=== PATIENT | male | born 1995 | race Two or more races ===

== ENCOUNTER 2017-12-18 23:24 | Emergency (ER) | payer MEDICAID ==
[~2017-12-18] VITALS: Ht 160 cm; Wt 54.5 kg
[~2017-12-18 23:24] MED LIST: ACET120E PO; DOCU-28 PO; NO HOME MEDS; POLY17PO10 PO; SENN8.6T19 PO; [UNRECOGNIZED DRUG - CODE] PO
[2017-12-19] MEDS ORDERED: IBUP-1984 PO (00:26)
[2017-12-19] MEDS: ibuprofen tablet 400 MG TABLET PO ONE ×2 (00:26→00:34)
[2017-12-19 00:39] VITALS: BP 111/75
== END 2017-12-19 00:42 | disposition home or self-care (01) ==
LOC: ER 23:25
DX: R07.89 Other chest pain (principal); R06.02 Shortness of breath; F12.10 Cannabis abuse, uncomplicated; Z87.891 Personal history of nicotine dependence
CPT/HCPCS: 71046; 93005; 99284

== ENCOUNTER 2018-07-22 19:17 | Emergency (ER) | payer MEDICAID ==
[~2018-07-22] VITALS: Ht 177.8 cm; Wt 55.0 kg
[2018-07-22 19:33] VITALS: BP 129/74
[2018-07-22] MEDS ORDERED: dexamethasone sod phosphate 10mg/ml inj PO STA (20:45)
[2018-07-22] MEDS ORDERED: ibuprofen 100 MG/5 ML oral susp PO ONE (20:45)
== END 2018-07-22 21:13 | disposition home or self-care (01) ==
LOC: ER 19:18
DX: G44.209 Tension-type headache, unspecified, not intractable (principal); G47.30 Sleep apnea, unspecified; F12.10 Cannabis abuse, uncomplicated; Z79.899 Other long term (current) drug therapy
CPT/HCPCS: 99283; J1100

== ENCOUNTER 2020-03-19 18:34 | Emergency (ER) | payer MEDICAID, OTHER ==
[~2020-03-19] VITALS: Ht 177.8 cm; Wt 61.4 kg
[2020-03-19 19:04] VITALS: BP 119/69
[2020-03-19] MEDS ORDERED: ketorolac tromethamine 15mg/ml inj. IM ONE (20:35)
== END 2020-03-19 20:52 | disposition home or self-care (01) ==
LOC: ER 18:34
DX: M79.671 Pain in right foot (principal); M25.551 Pain in right hip; G47.30 Sleep apnea, unspecified; F12.90 Cannabis use, unspecified, uncomplicated; Z72.89 Other problems related to lifestyle; Z79.899 Other long term (current) drug therapy
CPT/HCPCS: 73502; 96372; 99283; J1885

== ENCOUNTER 2020-12-13 12:06 | Emergency (ER) | payer MEDICAID, OTHER ==
[~2020-12-13] VITALS: Ht 177.8 cm; Wt 56.8 kg
[~2020-12-13 12:06] MED LIST changes: +IBUP100T80 PO; -[UNRECOGNIZED DRUG - CODE] PO
[2020-12-13 12:22] VITALS: BP 115/77
== END 2020-12-13 15:00 | disposition home or self-care (01) ==
LOC: ER 12:08
DX: J06.9 Acute upper respiratory infection, unspecified (principal); Z20.822 Contact with and (suspected) exposure to COVID-19; F12.90 Cannabis use, unspecified, uncomplicated; G47.30 Sleep apnea, unspecified; Z72.89 Other problems related to lifestyle; Z79.899 Other long term (current) drug therapy
CPT/HCPCS: 71045; 87635; 99284; C9803

== ENCOUNTER 2021-12-27 16:17 | Emergency (ER) | payer MEDICAID ==
[~2021-12-27] VITALS: Ht 177.8 cm; Wt 59.1 kg
[2021-12-27 17:36] VITALS: BP 181/157
[2021-12-27 18:15] LABS: BASOPHILS % (AUTO) 0.2 % (0-1); EOSINOPHILS % (AUTO) 0.1 % (0-6); HEMATOCRIT 40.3 % (42.0-52.0); HEMOGLOBIN 13.6 g/dl (14.0-17.9); LYMPHOCYTES # (AUTO) 0.4 X10'3 (1.1-4.8); LYMPHOCYTES % (AUTO) 5.3 % (21-51); MEAN CORPUSCULAR HEMOGLOBIN 29.7 PG (27.0-31.0); MEAN CORPUSCULAR HGB CONC 33.7 g/dL (33.0-36.5); MEAN CORPUSCULAR VOLUME 88.1 FL (78-98); MEAN PLATELET VOLUME 7.8 FL (7.4-10.4); MONOCYTES # (AUTO) 0.8 X10'3 (0-0.9); MONOCYTES % (AUTO) 12.2 % (2-12); NEUTROPHILS # (AUTO) 5.5 X10'3 (1.8-7.7); NEUTROPHILS % (AUTO) 82.2 % (42-75); PLATELET COUNT 252 X10'3 (140-440); RED BLOOD COUNT 4.57 X10'6 (4.70-6.10); RED CELL DISTRIBUTION WIDTH 12.9 % (11.5-14.5); WHITE BLOOD COUNT 6.7 X10'3 (4.5-11.0)
[2021-12-27 18:35] LABS: ALANINE AMINOTRANSFERASE 25 U/L (12-78); ALBUMIN/GLOBULIN RATIO 1.1 (1.1-1.5); ALKALINE PHOSPHATASE 68 IU/L (46-116); ANION GAP 10 (8-16); ASPARTATE AMINO TRANSFERASE 16 U/L (10-37); BILIRUBIN,TOTAL 0.5 MG/DL (0.1-1.0); BLOOD UREA NITROGEN 12 MG/DL (7-18); BUN/CREATININE RATIO 9.8 (5.4-32.0); CALCIUM 8.9 MG/DL (8.5-10.1); CHLORIDE 103 MMOL/L (99-107); CREATININE 1.23 MG/DL (0.60-1.10); GLUCOSE 91 MG/DL (70-104); LIPASE 121 U/L (73-393); POTASSIUM 3.7 MMOL/L (3.5-5.1); SODIUM 137 MMOL/L (135-145); TOTAL CARBON DIOXIDE 24.2 MMOL/L (24-32); TOTAL PROTEIN 7.8 G/DL (6.4-8.2); eGFR 72 ML/MIN
[2021-12-27 18:55] LABS: CLARITY,URINE CLEAR (Clear); COLOR,URINE YELLOW (Yellow); GLUCOSE, URINE NEGATIVE (Neg); KETONES,URINE >=80 mg/dl (Neg); LEUKOCYTE ESTERASE ,URINE NEGATIVE (Neg); NITRITES, URINE NEGATIVE (Neg); OCCULT BLOOD,URINE NEGATIVE (Neg); PROTEIN,URINE NEGATIVE (Neg); UROBILINOGEN,URINE 0.2 E.U/dL (0.2-1.0)
[2021-12-27 19:01] LABS: UA COLLECTION TYPE VOIDED
== END 2021-12-28 00:44 | disposition left against medical advice (07) ==
LOC: ER 16:18
DX: E86.0 Dehydration (principal); R11.2 Nausea with vomiting, unspecified; R10.9 Unspecified abdominal pain; Z53.21 Procedure and treatment not carried out due to patient leaving prior to being seen by health care provider
CPT/HCPCS: 36415; 80053; 81003; 83690; 85025

== ENCOUNTER 2023-09-23 17:57 | Emergency (ER) | payer MEDICAID ==
[~2023-09-23] VITALS: Ht 180.3 cm; Wt 62.0 kg
[2023-09-23 18:22] VITALS: BP 126/84; PULSE 99; RESP 16; TEMP 98.3; O2SAT 97
[2023-09-23] MEDS ORDERED: AMOX-115 PO (19:51)
[2023-09-23] MEDS: amox tr/potassium clavulanate 500mg/125mg TAB PO SCH (20:12)
[2023-09-23] MEDS: ibuprofen tablet 400 MG TABLET PO ONE (20:12)
[2023-09-23] MEDS: predniSONE 5mg tablet PO ONE (20:12)
[2023-09-23 20:53] LABS: STREP A SCREEN NEGATIVE (Neg)
== END 2023-09-23 20:58 | disposition home or self-care (01) ==
LOC: ER 17:58
DX: J02.0 Streptococcal pharyngitis (principal); F12.90 Cannabis use, unspecified, uncomplicated; Z79.899 Other long term (current) drug therapy; Z79.1 Long term (current) use of non-steroidal anti-inflammatories (NSAID)
CPT/HCPCS: 87081; 87880; 99284; J7512

== ENCOUNTER 2025-05-31 16:59 | Emergency (ER) | payer MEDICAID ==
[~2025-05-31] VITALS: Ht 177.8 cm; Wt 60.5 kg
--- NOTE | 2025-05-31 18:15 | Physician Documentation ---
History of Present Illness ~ Chief Complaint: Neck pain Stated Complaint: NECK PAIN Time Seen by MD: 17:47 OK to notify your PCP?: Yes [facility] Source: patient Mode of Arrival: POV Exam Limitations: no limitations HPI 29-year-old male presents with neck pain and tenderness to the front neck muscles since yesterday. He does not recall lifting anything heavy but he just woke up with this pain in his neck. He has not taken any medication for the pain. He denies any sore throat, runny nose, shortness of breath, nausea vomi ting or diarrhea, fevers, pain or pain with swallowing. Medication Reconciliation Allergies: Coded Allergies: No Known Allergies (Unverified , 05/31/25) Scheduled Cyclobenzaprine* (Cyclobenzaprine*), 1 TAB PO Q8H Docusate Sodium (Colace), 1 CAP PO BID Ibuprofen (Ibuprofen), 6 TAB.CHEW PO Q8H Sennosides (Senna Laxative), 8.6 MG PO DAILY Scheduled PRN Acetaminophen with Codeine (Acetaminophen-Codeine Solution), 20 ML PO Q4H PRN for pain Polyethylene Glycol 3350* (Miralax*), 1 PKT PO DAILY PRN for constipation Miscellaneous Medications Home Med List (No Home Medications), (Reported) Past Medical History Past Medical History: Sleep Apnea Past Surgical History: no surgical history Alcohol Use: Sober Drug Use: marijuana Lives with: Family Lives In: Home Occupation: employed, student Review of Systems All Other Systems at this time: Reviewed and Negative Physical Exam Vital Signs: RN Vital Signs have been reviewed: Yes, Temperature: 98.2, Source: Temporal, Heart Rate: 86, Respiratory Rate: 16, BP: 104/67, Pulse Oximetry: 99, Weight: 60.500 Oxygen Flow Rate: 0 Pulse Oximetry Reflects: adequate oxygenation Physical Exam General: Alert, no distress. HEENT: No injection, moist mucous membranes. Posterior pharynx clear. Neck: Full range of motion. Tenderness to palpation of sternocleidomastoid bilateral muscles. No cervical lymphadenopathy. Respiratory: No respiratory distress, equal chest rise and fall. Lungs clear Chest: No accessory muscle use. Cardiovascular: Regular rate and rhythm. Gastrointestinal: Nondistended. Extremities: Normal range of motion, no deformity. Neurologic: Oriented x4. Psychiatric: Normal mood and affect. Skin: Normal color, warm and dry. Progress Results/Orders Results/Orders Vital Signs 05/31/25 17:30 Temp 98.2 Pulse 86 Resp 16 B/P (MAP) 104/67 Pulse Ox 99 O2 Flow Rate 0 Medical Decision Making Additional information obtaine: old records, family Findings He has tenderness to palpation along bilateral sternocleidomastoid muscles. He does not have any cervical lymphadenopathy. He has no other associated symptoms. Has no sore throat or pain with swallowing. I provided him with aftercare instructions as well as return instructions. For his muscle strain I have provided him with Flexeril. First dose given here in the department. Differential Dx:Considerations: Include: Cervical muscle spasm, Discitis, DJD, Meningitis, Thyroiditis, Torticollis, Vertebral artery dissect. Departure Disposition: HOME / SELF CARE / HOMELESS Impression: Primary Impression: Strain of neck muscle Condition: Stable Discharge Instructions: Muscle Strain, [id number] Additional Instructions: Use the Flexeril as needed. Do not drive on this medication until you know how it affects her body as it can make people drowsy. Return back here for any new or worsening symptoms. Follow up with her primary care provider in the next week if this is not resolved. You can use a heating pad to help relax the muscle. Please refrain from any heavy lifting as this can further strained this muscle. Referrals: NO PRIMARY CARE PROVIDER (PCP) Prescriptions Cyclobenzaprine* (Cyclobenzaprine*) 10 Mg Tablet 1 TAB PO Q8H for muscle spasms for 10 Days, #30 TAB 0 Refills Prov: MARGARET VILLEGAS 05/31/25 Education Educated: Patient Educated regarding: diagnosis, treatment, prognosis, need for follow up Additional Comment Medical Screen Exam This patient recieved a medical screening examination. After reviewing the individual's medical complaints with presenting symptoms and performing an appropriate physical examination, it was determined that no immediate life- threatening emergency medical condition is present. This individual is also not a women having contractions. Signature Scribe Signature: . Attestation: Scribed for Margaret Villegas by Margaret Pineda NP . 05/31/25 18:19 Parts of this note were created using [employer] voice recognition software program. While efforts were made to correct any mistakes made by this voice recognition software program, nonsensical phrases may remain in this note. In addition, there may be errors and syntax, grammar, content and spelling. MARGARET VILLEGAS [facility] May 31, 2025 18:15
[2025-05-31] MEDS ORDERED: CYCL-1 PO (18:18)
[2025-05-31 18:57] VITALS: BP 124/80; PULSE 70; RESP 16; TEMP 98.1; O2SAT 99
== END 2025-05-31 18:58 | disposition home or self-care (01) ==
LOC: ER 17:00
DX: S16.1XXA Strain of muscle, fascia and tendon at neck level, initial encounter (principal); G47.30 Sleep apnea, unspecified; F12.90 Cannabis use, unspecified, uncomplicated; Z79.899 Other long term (current) drug therapy; X58.XXXA Exposure to other specified factors, initial encounter; Y93.89 Activity, other specified; Y92.89 Other specified places as the place of occurrence of the external cause; Y99.8 Other external cause status
CPT/HCPCS: 99283